=== PATIENT | female | born 1950 | race Caucasian/White ===

== ENCOUNTER → 2017-09-16 08:53 | Outpatient (CLI) | payer MEDICARE, OTHER | END | disposition home or self-care (01) | LOC: D.MRI 08:53 | DX: M25.572 Pain in left ankle and joints of left foot (principal) ==

== ENCOUNTER → 2018-04-06 08:44 | Outpatient (CLI) | payer MEDICARE, BC ==
[~2018-04-06 08:44] MED LIST: LISINOPRIL2.5 MG PO; PROTONIX40 MG PO
== END | disposition home or self-care (01) ==
LOC: D.MRI 08:44
DX: M25.572 Pain in left ankle and joints of left foot (principal)

== ENCOUNTER → 2018-04-18 10:31 | Outpatient (CLI) | payer MEDICARE, BC | END | disposition home or self-care (01) | LOC: D.US 10:31 | DX: I83.893 Varicose veins of bilateral lower extremities with other complications (principal) ==

== ENCOUNTER 2018-05-01 08:50 | Day surgery (SDC) | payer MEDICARE, BC ==
[2018-04-27 16:29] LABS: HEMOGLOBIN 12.3 g/dL (12-16); MCH 30.2 pg (26.0-34.0); MCHC 32.4 g/dL (31.0-37.0); MCV 93.4 fL (80.0-100.0); MEAN PLATELET VOLUME 10.2 fL (7.4-10.4); RBC 4.07 10x6/uL (4.00-5.40); RDW 13.3 % (11.5-14.5); WBC 3.9 10x3/uL (4.8-10.8)
[~2018-05-01] VITALS: Ht 165.1 cm; Wt 72.6 kg
[2018-05-01] MEDS ORDERED: METOPROLOL TART25 MG (09:35)
[2018-05-01] MEDS ORDERED: B COMPLEX (09:36)
[2018-05-01] MEDS ORDERED: CYANOCOBALAMIN (09:36)
[2018-05-01] MEDS ORDERED: MAGNESIUM OXID250 MG PO (09:37)
[2018-05-01] MEDS ORDERED: SUPER B COMPLEX PO (09:37)
[2018-05-01] MEDS ORDERED: VITAMIN D5000 UNIT PO (09:38)
[2018-05-01 09:50] VITALS: BP 161/83; Ht 165.1 cm; Wt 72.6 kg
[2018-05-01] MEDS ORDERED: DEMEROL100 MG PO (11:49)
--- NOTE | 2018-05-01 13:21 | OP ---
PATIENT NAME: ANDIE TOMAS MEDICAL RECORD: [id number] :46 LOCATION:[facility] ADMISSION DATE: SURGEON: MAITE LEGER MD DATE OF OPERATION: 05/01/2018 PREOPERATIVE DIAGNOSIS: Peroneal tendinitis and synovitis, left peroneus longus and brevis. POSTOPERATIVE DIAGNOSIS: Peroneal tendinitis and synovitis, left peroneus longus and brevis. PROCEDURE: Debridement of peroneus longus and brevis tendon sheath with synovectomy. SURGEON: Maite Leger MD COAT TAILOR: JORGE ALBERTO Muniz. INTRAOPERATIVE COMPLICATIONS: None. SUMMARY OF PATHOLOGIC FINDINGS: The patient's peroneus longus and brevis tendon sheath were explicitly fluid-filled and also filled with a substantial amount of synovitis. The patient did have tearing, but no full-thickness tearing was noted. OPERATIVE SUMMARY IN DETAIL: After obtaining the appropriate preoperative orthopedic surgery consent as well as anesthetic consultation, evaluation and clearance, the patient was brought to the operating room and placed on the operating table in supine position. After general laryngeal mask airway was administered, the patient was placed in right lateral decubitus position. All pressure points were well padded to include down peroneal pad as well as axillary roll. She was held firmly to the operating table using the vacuum pack suction system. Left lower extremity was prepared with a tourniquet about the proximal aspect. The left lower extremity was then prepped and draped in routine sterile fashion. The leg was elevated and exsanguinated, tourniquet was inflated to 350 mmHg. Curvilinear incision was made on the posterior aspect of the lateral malleolus. When the sheath was encountered, substantial amounts of synovial fluid was also encountered along with synovitis. Thorough examination of the peroneus longus and brevis showed no longitudinal tearing, mostly the patient had substantial synovitis with partial thickness tearing, but none full-thickness. Having completed full synovectomy, the wound was copiously irrigated. The peroneus longus and brevis tendon sheath were gently tacked back together, albeit much looser. Wound was then irrigated again. The skin was closed with 2-0 Vicryl followed by 4-0 Prolene in a running fashion. The area was locally infiltrated to add some addition to the patient's preoperative block. Sterile dressings were applied. Tourniquet was deflated. Posterior L&U splint was applied. The patient was then awakened and taken to the recovery room in stable condition. All final needle and sponge counts were correct. TRANSINT:[id number] Voice Confirmation ID: [id number] DOCUMENT ID: [id number] OPERATIVE REPORT [id number] ANDIE TOMAS MD, MAITE IGLESIAS at 1321 CC: [id number] DICTATION DATE: 05/01/18 1152 SUPERVISOR COMPOSING ROOM: 05/01/18 1238 PRE [facility] [address] [place] [address]
== END 2018-05-01 14:20 | disposition home or self-care (01) ==
LOC: D.OPS 08:50 → D.PAN 15:00 → D.OPS 15:00
PROVIDERS: Anesthesiology; ATTEND Orthopaedic Surgery
DX: M76.72 Peroneal tendinitis, left leg (principal); M65.872 Other synovitis and tenosynovitis, left ankle and foot; Z01.812 Encounter for preprocedural laboratory examination